=== PATIENT | male | born 1990 | race African-American/Black ===

== ENCOUNTER 2019-06-24 18:23 | Emergency (ER) | payer OTHER ==
[2019-06-24] MEDS ORDERED: Ketorolac 60 MG/2 ML SDV IM ONE (20:16)
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
--- NOTE | 2019-06-24 20:50 | CR ---
Lumbar spine: AP and lateral views lumbar spine were obtained as well as coned down lateral view of the lumbosacral junction. Vertebral body heights and disc spaces are maintained. Pedicles are intact. Transverse and spinous processes are intact. No subluxation or discrete fracture is appreciated. Impression: 1. No abnormality is appreciated on 3 view lumbar spine study. Diagnostic code #1 This report was dictated in [place] Standard Time
== END 2019-06-24 21:23 | disposition home or self-care (01) ==
LOC: MW.ED 18:23
DX: S39.012A Strain of muscle, fascia and tendon of lower back, initial encounter (principal); F17.210 Nicotine dependence, cigarettes, uncomplicated; V43.92XA Unspecified car occupant injured in collision with other type car in traffic accident, initial encounter; Y92.488 Other paved roadways as the place of occurrence of the external cause
CPT/HCPCS: 72100; 96372; 99283; J1885

== ENCOUNTER 2019-09-07 22:09 | Emergency (ER) | payer SELFPAY ==
--- NOTE | 2019-09-07 23:23 | EDM.PDOC ---
ED HPI GENERAL MEDICAL PROBLEM - General Chief Complaint: Lower Extremity Injury/Pain Stated Complaint: INJURY ON RIGHT FOOT Time Seen by Provider: 09/07/19 22:19 Source of Information: Reports: Patient - History of Present Illness INITIAL COMMENTS - FREE TEXT/NARRATIVE: The patient is a 28-year-old male who presents to the ER secondary to right lateral foot pain. He states that last week he was playing around with a friend doing karate kicks and he injured his right foot. It seemed to be healing okay and then yesterday he kicked the corner of a wall accidentally and now the right lateral portion of his foot is hurting. Weightbearing is difficult. No other complaints. Right Foot Pain Score (Numeric/FACES): 7 - Related Data Allergies Allergy/AdvReac Type Severity Reaction Status Date / Time No Known Allergies Allergy Verified 09/07/19 22:23 Home Meds: Home Meds . [No Known Home Meds] 09/07/19 [History] Past Medical History - Past Health History Medical/Surgical History: Denies Medical/Surgical History HEENT History: Reports: None Cardiovascular History: Reports: None Respiratory History: Reports: None Gastrointestinal History: Reports: None Genitourinary History: Reports: None Musculoskeletal History: Reports: None Neurological History: Reports: None Psychiatric History: Reports: None Endocrine/Metabolic History: Reports: None Hematologic History: Reports: None Immunologic History: Reports: None Oncologic (Cancer) History: Reports: None Dermatologic History: Reports: None - Infectious Disease History Infectious Disease History: Reports: None - Past Surgical History Head Surgeries/Procedures: Reports: None Male Surgical History: Reports: None Social & Family History - Family History Family Medical History: Noncontributory - Tobacco Use Smoking Status *Q: Current Every Day Smoker Years of Tobacco use: 14 Packs/Tins Daily: 0.5 Used Tobacco, but Quit: No Second Hand Smoke Exposure: No - Caffeine Use Caffeine Use: Reports: Coffee - Alcohol Use Days Per Week of Alcohol Use: 7 Number of Drinks Per Day: 5 Total Drinks Per Week: 35 - Recreational Drug Use Recreational Drug Use: Yes Drug Use in Last 12 Months: Yes Recreational Drug Type: Reports: Marijuana/Hashish Recreational Drug Use Frequency: Weekly Review of Systems - Review of Systems Review Of Systems: See Below (Right foot pain, negative for ankle pain) ED EXAM, GENERAL - Physical Exam Exam: See Below Free Text/Narrative:: Constitutional: No acute distress, Non-toxic appearance. HEENT: Normocephalic, Atraumatic, EOMI Neck: Normal range of motion, No stridor, trachea midline Respiratory: No respiratory distress, No tachypnea Cardiovascular: Deferred Gastrointestinal: Deferred Genital / Urinary: Deferred Musculoskeletal: All four extremities present and atraumatic Back: FROM Integument: Warm, Dry, Color is ethnicity appropriate, No rash. Neuro: Alert, Awake, No focal deficits noted Psych: Affect, Judgement, mood normal Course - Vital Signs Text/Narrative:: On physical exam I do not see any ecchymosis, instability, etc. Right foot x-ray 3 views reviewed and interpreted by me -are no fractures, no acute process noted. Last Recorded V/S: Last Vital Signs Temp 36.8 C 09/07/19 22:23 Pulse 79 09/07/19 22:23 Resp 16 09/07/19 22:23 BP 145/84 H 09/07/19 22:23 Pulse Ox 97 09/07/19 22:23 - Orders/Labs/Meds Orders: Active Orders 24 hr Category Date Time Status Foot Comp Min 3V Rt [CR] Stat Exams 09/07/19 22:23 Ordered Departure - Departure Time of Disposition: 23:22 Disposition: Home, Self-Care 01 Condition: Good Clinical Impression: Contusion of foot, right - Discharge Information Instructions: Foot Contusion, [id number] Referrals: PCP,None [Primary Care Provider] - Sepsis Event Note - Evaluation Sepsis Screening Result: No Definite Risk - Focused Exam Vital Signs: Vital Signs Temp Pulse Resp BP Pulse Ox 09/07/19 22:23 36.8 C 79 16 145/84 H 97 Date Exam was Performed: 09/07/19 Time Exam was Performed: 23:19 - My Orders Last 24 Hours: My Active Orders 09/07/19 22:23 Foot Comp Min 3V Rt [CR] Stat - Assessment/Plan Last 24 Hours: My Active Orders 09/07/19 22:23 Foot Comp Min 3V Rt [CR] Stat
--- NOTE | 2019-09-07 23:25 | CR ---
Indication: Injury and pain Technique: Right foot 3 views. Comparison: None Findings: Bones: Alignment is normal. No fractures or bone lesions. Joint spaces: Unremarkable. Soft tissues: Unremarkable. Impression: No sign of acute injury. Dictated by Kwasi Aragon MD @ Sep 07 2019 11:22PM Signed by Dr. Kwasi Aragon @ Sep 07 2019 11:24PM
== END 2019-09-07 23:53 | disposition home or self-care (01) ==
LOC: MW.ED 22:09
DX: S90.31XA Contusion of right foot, initial encounter (principal); F17.210 Nicotine dependence, cigarettes, uncomplicated; W22.8XXA Striking against or struck by other objects, initial encounter; Y93.75 Activity, martial arts
CPT/HCPCS: 73630-26-RT; 73630-RT; 99283; 99283-25

== ENCOUNTER 2021-07-02 20:58 | Emergency (ER) | payer OTHER, MEDICAID ==
[2021-07-02] MEDS ORDERED: Cyclobenzaprine 10 MG Tab PO ONE (21:23)
[2021-07-02] MEDS ORDERED: Ketorolac 30 MG/ML SDV IM ONE (21:23)
[2021-07-02] MEDS ORDERED: Lidocaine 5% 700 MG Patch TRDERM ONE (21:24)
== END 2021-07-02 22:19 | disposition home or self-care (01) ==
LOC: MW.ED 20:58
DX: S39.012A Strain of muscle, fascia and tendon of lower back, initial encounter (principal); Z72.0 Tobacco use; X50.1XXA Overexertion from prolonged static or awkward postures, initial encounter; Y92.89 Other specified places as the place of occurrence of the external cause; Y99.0 Civilian activity done for income or pay
CPT/HCPCS: 72100; 96372; 99283; A9270; J1885